=== PATIENT | male | born 1985 | race Caucasian/White ===

== ENCOUNTER 2019-05-27 14:39 | Outpatient (CLI) | payer OTHER ==
--- NOTE | 2019-05-27 15:57 | MRI ---
MRI CERVICAL SPINE WITHOUT IV CONTRAST: 05/27/19 HISTORY: Cervical radiculitis. FINDINGS: The vertebral body heights and marrow signal is maintained. No focal disc herniation, central canal s tenosis or neural foraminal stenosis seen. No cord compression, cord edema, syringomyelia or myelomal acia is seen. The cervical spinal cord demonstrates normal course, caliber and signal. No tonsillar h erniation is seen. The paraspinal musculature is normal. IMPRESSION: No significant abnormalities are identified. POS: [facility]
--- NOTE | 2019-05-27 20:29 | MRI ---
Exam: Left wrist MRI without IV contrast: HISTORY: Osteonecrosis lunate left breast FINDINGS: Multiplanar multisequence MRI examination of the left wrist is performed. There is no significant abn ormal marrow signal. No evidence for osteonecrosis. Visualized flexor and extensor tendons are intact. No abnormal fluid collection. Scapholunate ligament region appears unremarkable. Triangular f ibrocartilage complex is unremarkable. No significant abnormal fluid in the distal radial ulnar joint. IMPRESSION: No evidence for lunate avascular necrosis. No evidence for other significant acute process.
== END 2019-05-27 14:40 | disposition home or self-care (01) ==
LOC: SCSMRI 14:39
PROVIDERS: ATTEND Orthopaedic Surgery Hand Surgery
DX: M54.12 Radiculopathy, cervical region (principal); M87.9 Osteonecrosis, unspecified
CPT/HCPCS: 72141

== ENCOUNTER 2023-10-12 09:11 | Outpatient (CLI) | payer BC | END 2023-10-12 09:12 | disposition home or self-care (01) | LOC: RAD 09:11 | PROVIDERS: ATTEND Family Medicine | DX: M54.12 Radiculopathy, cervical region (principal); M54.16 Radiculopathy, lumbar region | CPT/HCPCS: 72040; 72100 ==

== ENCOUNTER 2023-10-14 08:46 | Outpatient (CLI) | payer BC | END 2023-10-14 08:47 | disposition home or self-care (01) | LOC: MRI 08:46 | PROVIDERS: ATTEND Family Medicine | DX: M50.123 Cervical disc disorder at C6-C7 level with radiculopathy (principal); M51.37 Other intervertebral disc degeneration, lumbosacral region; Q05.7 Lumbar spina bifida without hydrocephalus | CPT/HCPCS: 72141; 72148 ==